=== PATIENT | female | born 1945 | race Caucasian/White ===

== ENCOUNTER 2016-05-20 09:11 | Emergency (ER) | payer MEDICARE ==
[~2016-05-20 09:11] MED LIST: ALEN70TA5 PO; DOXY100T PO; HYDR25TA9 PO; LISI40TA PO; METO100T2 PO; METO50TA2 PO; POTA20TA4 PO; WARF5TAB7 PO
[2016-05-20 09:44] VITALS: BP 155/61
[2016-05-20] MEDS ORDERED: HYDROCODONE/APAP 5/325MG TABLET. PO ONE (09:45)
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
--- NOTE | 2016-05-20 10:06 | RAD ---
Examination: 3 views of the right ankle History: History of lateral ankle pain after fall Comparison: None available Findings: There is an oblique nondisplaced fracture of the lateral malleolus at the level of the ankle joint line. There is mild soft tissue swelling identified lateral to the lateral malleolus. There is mild widened appearance of the medial clear space. Impression: 1. Nondisplaced fracture of the distal lateral malleolus. 2. Mild widening of the medial clear space could be secondary to ligamentous injury. 3. Mild soft tissue swelling identified lateral to lateral malleolus.
[2016-05-20] MEDS ORDERED: HYDR-971 PO (10:35)
== END 2016-05-20 10:49 | disposition home or self-care (01) ==
LOC: ER 09:11
DX: S82.64XA Nondisplaced fracture of lateral malleolus of right fibula, initial encounter for closed fracture (principal); I10 Essential (primary) hypertension; E78.00 Pure hypercholesterolemia, unspecified; I48.91 Unspecified atrial fibrillation; Z88.0 Allergy status to penicillin; Z88.2 Allergy status to sulfonamides; W01.0XXA Fall on same level from slipping, tripping and stumbling without subsequent striking against object, initial encounter; Y93.89 Activity, other specified; Y92.89 Other specified places as the place of occurrence of the external cause; Y99.8 Other external cause status
CPT/HCPCS: 29515; 73610; 99284; L4350